=== PATIENT | female | born 1960 ===

== ENCOUNTER → 2023-10-13 11:09 | Outpatient (POV) | payer MEDICARE, MEDICAID, SELFPAY ==
[2023-10-13 11:33] VITALS: BP 138/72; PULSE 100; RESP 18; O2SAT 100; BMI 31.6
--- NOTE | 2023-10-13 12:13 | EXP.PAIN.OV ---
HPI Data of Consult Patient: new to practice Consult date: 10/13/23 Requesting Physician: Diandra Alvares APRN Consult Narrative Reason for consult: Low back pain, bilateral leg pain, allover pain History of present illness: Ms. Fitzpatrick is a 63 year old female who presents today as a new patient. She is a referral from [facility]. Today she rates her pain a 10 out of 10. Patient states her pain is all over however she does have a lot of pain in her low back and legs that is what she is coming to see us for today. She describes this as an aching, throbbing sensation with numbness and tingling into her extremities. She states the pain does interfere with her ability to activities of daily living such as cooking and cleaning. Patient states when she lived in [place] she did have injections in the past and they really helps. Patient states she also went to physical therapy and that helped as well however it has been sometime since she has had this. Patient states since moving from [place] that some of this did not carryover and she would like to get something started back. Patient states has been going on for years and that she did in the past have a back injury that worsened her pain. Patient does also state that part of her pain is related to MS diagnosis, lupus and fibromyalgia. Patient states the pain does interfere with her ability perform activities of daily living. She states that she does take Robaxin, diclofenac and Lyrica. Patient is currently managed with pregabalin 300 mg twice daily and [place] 7.5 mg 3 times a day from outside providers. Her Ghassan has been reviewed and is appropriate. CC: Diandra Alvares APRN [facility] Disclaimer: The information contained in this section may have been updated after the patient was seen, as this information can be updated by other users. Medical History (Updated 10/13/23 @ 12:18 by Diandra Alvares APRN) Anemia Asthma Chronic headaches Depression Fibromyalgia HLD (hyperlipidemia) Insomnia Lupus Multiple sclerosis Surgical History (Updated 10/13/23 @ 12:06 by Herminia Fall RN) H/O oophorectomy H/O: hysterectomy Hx of cholecystectomy Family History (Updated 10/13/23 @ 11:59 by Herminia Fall RN) Other Malignant lymphoma Social History (Updated 10/13/23 @ 12:08 by Herminia Fall RN) Smoking Status: Former smoker alcohol intake: never current occupational status: other Travel in the last 8 weeks: None Review of Systems Review of Systems Review of systems:: pertinent systems reviewed and negative unless documented below Review of systems (narrative): Review of Systems: General: No recent weight changes, no fever, no sleep disturbances Respiratory: No cough, no shortness of air, no recurring pulmonary infections Cardiovascular/peripheral vascular: No chest pain, no palpitations, no edema, no shortness of breath Gastrointestinal: No new onset incontinence, normal bowel movements reported Genitourinary: No new onset incontinence Musculoskeletal: Low back pain, bilateral leg pain Psychiatric: [Normal mood/affect] Neurological: [Denies weakness in extremities], [denies balance issues] Meds Home Medications and Allergies Home Medications Medication Instructions Recorded Confirmed Type albuterol sulfate 90 mcg/actuation 1 inh inhalation Q4H Breathing 10/13/23 10/13/23 History aerosol inhaler (Ventolin HFA) Problems atropine 1 % eye drops 1 drp Eye-Right DAILY EYE 10/13/23 10/13/23 History cholecalciferol (vitamin D3) 1,250 1,250 mcg PO WEEKLY SUPPLIMENT 10/13/23 10/13/23 History mcg (50,000 unit) capsule hydrocodone 7.5 mg-acetaminophen 1 tab PO TIDP PRN Pain 10/13/23 10/13/23 History 325 mg tablet hydroxyzine HCl 50 mg tablet 50 mg PO QIDP PRN Anxiety 10/13/23 10/13/23 History lovastatin 20 mg tablet 20 mg PO DAILY Cholesterol 10/13/23 10/13/23 History mirtazapine 30 mg tablet 30 mg PO BID . 10/13/23 10/13/23 History oxybutynin chloride 5 mg tablet 5 mg PO DAILY BLADDER 10/13/23 10/13/23 History pantoprazole 40 mg tablet,delayed 40 mg PO DAILY STOMACH 10/13/23 10/13/23 History release pen needle, diabetic 32 gauge x 10/13/23 10/13/23 History (BD Ashlee 2nd Gen Pen Needle) pregabalin 300 mg capsule 300 mg PO BID Pain 10/13/23 10/13/23 History quetiapine 100 mg tablet 100 mg PO BID . 10/13/23 10/13/23 History ropinirole 3 mg tablet 3 mg PO DAILY LEGS 10/13/23 10/13/23 History topiramate 200 mg tablet 200 mg PO DAILY . 10/13/23 10/13/23 History trazodone 100 mg tablet 200 mg PO DAILY SLEEP 10/13/23 10/13/23 History New Prescriptions to Start Prescriptions: Allergies Allergy/AdvReac Type Severity Reaction Status Date / Time gabapentin Allergy Verified 10/13/23 12:29 hydromorphone [From Dilaudid] Allergy Verified 10/13/23 12:29 ketorolac [From Toradol] Allergy Verified 10/13/23 12:29 tramadol Allergy Verified 10/13/23 12:29 Objective Narrative: Physical Exam: General: Alert and oriented x3, no acute distress, pleasant and cooperative Lungs: Respirations even and unlabored, symmetrical chest expansion Eyes: PERRL Musculoskeletal: Flexion and extension of lumbar [spine] somewhat guarded secondary to pain, [antalgic gait noted] point tenderness noted with palpation of lower lumbar spine Neurological: Speech clear, no gross sensory deficit Additional findings Additional findings: Primary plus x-ray imaging lumbar spine 09/29/2023 Findings: Vertebral height and alignment maintained. No evidence of fracture. Disc space narrowing and facet arthropathy at the lower 3 intervertebral levels. Incidental moderately large colonic stool burden Assessment and Plan *Assessment and plan (1) Low back pain: Status: Acute Qualifiers: Back pain laterality: bilateral Chronicity: chronic Sciatica presence: without sciatica Qualified Code(s): M54.50 - Low back pain, unspecified; G89.29 - Other chronic pain Category: Medical Code(s): M54.50 - Low back pain, unspecified (2) Lumbar radiculopathy: Status: Acute Category: Medical Code(s): M54.16 - Radiculopathy, lumbar region (3) Multiple sclerosis: Status: Acute Category: Medical Code(s): G35 - Multiple sclerosis (4) Lupus: Status: Acute Category: Medical Code(s): M32.9 - Systemic lupus erythematosus, unspecified (5) Fibromyalgia: Status: Acute Category: Medical Code(s): M79.7 - Fibromyalgia Plan Patient is experiencing worsening pain in her low back and legs with limited range of motion of her lumbar spine. Patient did have x-ray and CT imaging done through her primary care and we will reach out to get a copy of this imaging. Patient did have point tenderness along her lower lumbar spine. I have discussed with the patient that she may benefit from lumbar epidural steroid injection. Risk and benefits were discussed with patient and she would like to proceed forward with this plan of care. Patient denies any blood thinners. I will also order the patient physical therapy for evaluation and treatment of her low back and leg symptoms. Patient will be scheduled for a lumbar epidural steroid injection L4-L5 under fluoroscopy. Patient has been instructed to contact the clinic with any concerns before the next appointment. Dr. Felton has reviewed this note and agrees with this plan of care. This note was dictated using voice recognition software and make contain errors or omissions.
== END ==
LOC: SC.PAIN 11:14
PROVIDERS: Visit Provider Nurse Practitioner Family
DX: M54.50 Low back pain, unspecified (principal); G89.29 Other chronic pain; M54.16 Radiculopathy, lumbar region; G35 Multiple sclerosis; M32.9 Systemic lupus erythematosus, unspecified; M79.7 Fibromyalgia
CPT/HCPCS: 99202; G0463